=== PATIENT | male | born 1995 | race Caucasian/White ===

== ENCOUNTER 2018-07-19 13:04 | Emergency (ER) | payer BC, OTHER ==
[2018-07-19 14:32] VITALS: BP 119/74
--- NOTE | 2018-07-19 14:55 | UC ---
Dental HPI - HPI Summary HPI Summary: 23 y/o male presents to the urgent care c/o RT lower posterior jaw pain since Thursday07/16/2018. Pt reports his wisdom tooth and trying to come out, but he feels there is some infection around the Rt bottom wisdom gum. Pain has increase w/ time. Pain is 4/10, specially w/ chewing. [place] he applied Oragel and took Ibuprofen 400mg PO about 2 hrs ago. Pt doesn't have a Dentist since he recently got a new insurance. Pt denies fever, trismus, SOB, chest pain, abdominal pain, N/V/D. - History of Current Complaint Chief Complaint: UCDentalProblem Stated Complaint: DENTAL PAIN Time Seen by Provider: 07/19/18 14:54 Hx Obtained From: Patient Onset/Duration: Gradual Onset Severity: Moderate Pain Intensity: 4 Pain Scale Used: 0-10 Numeric Aggravating Factor(s): Chewing Alleviating Factor(s): OTC Meds - Allergies/Home Medications Allergies/Adverse Reactions: Allergies Allergy/AdvReac Type Severity Reaction Status Date / Time No Known Allergies Allergy Verified 07/19/18 14:32 Home Medications: Home Medications Ibuprofen 400 mg PO DAILY WITH MEAL 07/19/18 [History Confirmed 07/19/18] PMH/Surg Hx/FS Hx/Imm Hx Previously Healthy: Yes - Pt denies PMHX - Surgical History Surgical History: Yes Surgery Procedure, Year, and Place: NEEDLE PROCEDURE TO HIP - Family History Known Family History: Positive: None - Pt denies FMHX - Social History Occupation: Student Lives: With Family Alcohol Use: Weekly Substance Use Type: Marijuana Smoking Status (MU): Never Smoked Tobacco - Immunization History Vaccination Up to Date: Yes Review of Systems All Other Systems Reviewed And Are Negative: Yes Constitutional: Positive: Negative Skin: Positive: Negative Eyes: Positive: Negative ENT: Positive: Dental Pain - posterior Rt lower jaw pain w/ mild swelling Respiratory: Positive: Negative Cardiovascular: Positive: Negative Gastrointestinal: Positive: Negative Genitourinary: Positive: Negative Motor: Positive: Negative Neurovascular: Positive: Negative Musculoskeletal: Positive: Negative Neurological: Positive: Negative Psychological: Positive: Negative Is Patient Immunocompromised?: No Physical Exam - Summary Physical Exam Summary: Vital Signs Reviewed: Yes General: Well-Appearing, Well-Nourished male sitting in the examining table w/o any respiratory or pain distress Eyes: Positive: Conjunctiva Clear - PERRLA, EOMI, ENT: Positive: Normal ENT inspection, Hearing grossly normal, Pharynx normal, TMs normal - B/L external ear canals clear,. Negative: Tonsillar swelling, Tonsillar exudate, Trismus Dental: Positive: molar #32 w/ gingival swelling and erythema, tender to percussion. mild RT anterior Cervical Lymphadenopathy, No trismus Neck: Positive: Supple Respiratory: Positive: Chest non-tender, Lungs clear, Normal breath sounds, No respiratory distress Cardiovascular: Positive: RRR, No Murmur, Pulses Normal, Brisk Capillary Refill Abdomen Description: Positive: Nontender, No Organomegaly, Soft. Negative: CVA Tenderness (R), CVA Tenderness (L) Bowel Sounds: Positive: Present Musculoskeletal: Positive: Strength Intact, ROM Intact, No Edema Neurological Exam: Normal Psychological Exam: Normal Skin Exam: Normal Triage Information Reviewed: Yes Vital Signs: Initial Vital Signs Temp 98.9 F 07/19/18 14:28 Pulse 55 07/19/18 14:28 Resp 18 07/19/18 14:28 BP 119/74 07/19/18 14:28 Pulse Ox 100 07/19/18 14:28 Dental Complaint Course/Dx - Course Course Of Treatment: 23 y/o male presents to the urgent care c/o RT lower posterior jaw pain since Thursday07/16/2018. Pt reports his wisdom tooth and trying to come out, but he feels there is some infection around the Rt bottom wisdom gum. Pain has increase w/ time. Pain is 4/10, specially w/ chewing. [place] he applied Oragel and took Ibuprofen 400mg PO about 2 hrs ago. Pt doesn't have a Dentist since he recently got a new insurance. Pt denies fever, trismus, SOB, chest pain, abdominal pain, N/V/D. Hx obtained. Pt w/Positive: molar #32 w/ gingival swelling and erythema, tender to percussion. mild RT anterior Cervical Lymphadenopathy, No trismus on examination. pt probably w/ small abscess. Pt Rx clindamycin PO and Ibuprofen PO for pain. Pt given a Dentral list and strongly advised to f/u with Dentist as soon as possible further evaluation and treatment. Pt understood and agreed with plan of care. Left the clinic ambulating. - Differential Dx/Diagnosis Differential Diagnosis/Dx: Dental Abscess, Dental Caries, Gingivitis, Peridontic Disease, Peritonsillar Abcess, Tonsillitis Provider Diagnosis: Dental abscess Discharge - Sign-Out/Discharge Documenting (check all that apply): Patient Departure - D/c home All imaging exams completed and their final reports reviewed: No Studies - Discharge Plan Condition: Stable Disposition: HOME Prescriptions: Clindamycin Cap(NF) [Clindamycin Cap 300 mg Cap(NF)] 300 mg PO TID #30 cap Ibuprofen TAB* [Motrin TAB* 600 MG] 600 mg PO Q6H PRN #30 tab PRN Reason: dental pain Patient Education Materials: Dental Abscess (ED) Referrals: Floyd Coombs MD [Primary Care Provider] - 3 Days Additional Instructions: 1-Please take full course of antibiotic to avoid resistance. 2- Take Ibuprofen as instructed after meals to alleviate pain and swelling. continue applying Oragel to alleviate symptoms 3- F/u with your Dentist or Dental List provided as soon as possible for further treatment. 4- If symptoms do not improve or worsen please return to the urgent care or f/u with your PCP in 2-3 days for further evaluation and treatment - Billing Disposition and Condition Condition: STABLE Disposition: Home
== END 2018-07-19 15:20 | disposition home or self-care (01) ==
LOC: UCEAST 13:04
DX: K04.7 Periapical abscess without sinus (principal)
CPT/HCPCS: 99212; G0463